=== PATIENT | female | born 1965 | race African-American/Black ===

== ENCOUNTER 2017-07-22 10:27 | Emergency (ER) | payer SELFPAY ==
[~2017-07-22] VITALS: Ht 154.9 cm; Wt 94.8 kg
[~2017-07-22 10:27] MED LIST: AMLODIPINE BESYL5 MG ORAL; AMPICILLIN2 GM PO; BENADRYL25 M2 PO; BENADRYL25 M3 PO; BENADRYL25 MG ORAL; BENADRYL25 MG/10 M GT; BENADRYL50 MG ORAL; BENADRYL50 MG PO; BENAZEPRIL HCL20 MG PO; CEPHALEXIN500 MG ORAL; CLINDAMYCIN HC150 MG ORAL; CLINDAMYCIN HC300 MG ORAL; COLACE250 MG PO; DIFLUCAN100 MG ORAL; DIPHENHYDRAMINE25 M1 ORAL; FUROSEMIDE20 M1 ORAL; FUROSEMIDE40 MG ORAL; HYDROCHLOROTHIA25 MG ORAL; HYDROCHLOROTHIA25 MG PO; IBUPROFEN600 MG ORAL; IBUPROFEN600 MG PO; IBUPROFEN800 M1 PO; IBUPROFEN800 MG ORAL; KENALOG 0.1% CR15 GM APPLIC; MEDROL DOSEPAK4 MG ORAL; METOPROLOL TART25 MG ORAL; NORCO 5-325 TA1 EACH ORAL; NORVASC5 MG ORAL; NYSTATIN1 EAC1 PO; NYSTATIN100000 UN1 ORAL; OMEPRAZOLE40 M1 ORAL; POTASSIUM CHLO10 MEQ PO; PREDNISONE20 MG ORAL; RANITIDINE HCL150 MG ORAL; UNOBMED; VITAMIN D1000 UNI1 ORAL; ZANTAC150 MG ORAL; motrin
[2017-07-22 10:45] VITALS: BP 209/99
[2017-07-22 11:00] VITALS: BP 198/133
[2017-07-22] MEDS ORDERED: Solu-MEDROL 125mg Inj IVP ONE (11:00)
[2017-07-22] MEDS ORDERED: DiphenhydrAMINE 50mg/ml Inj IVP ONE (11:00)
[2017-07-22 11:15] VITALS: BP 198/89
[2017-07-22 11:30] VITALS: BP 179/84
[2017-07-22 11:36] LABS: ANION GAP 9 mmol/L (5-15); BASOPHILS % (AUTO) 0.6 % (0.0-2.0); CALCIUM 8.8 MG/DL (8.5-10.1); CARBON DIOXIDE 28 MMOL/L (21-32); CHLORIDE 107 MMOL/L (98-107); CREATININE 0.9 MG/DL (0.55-1.30); EOSINOPHILS % (AUTO) 5.3 % (0.0-3.0); GLOMERULAR FILTRATION RATE > 60 mL/min (>60); LYMPHOCYTES % (AUTO) 42.7 % (20.0-45.0); MEAN CORPUSCULAR HEMOGLOBIN 28.2 PG (27.0-31.0); MEAN CORPUSCULAR HGB CONC 33.1 G/DL (32.0-36.0); MEAN CORPUSCULAR VOLUME 85 FL (80-99); MEAN PLATELET VOLUME 8.1 FL (6.5-10.1); MONOCYTES % (AUTO) 6.5 % (1.0-10.0); NEUTROPHILS % (AUTO) 44.9 % (45.0-75.0); PLATELET COUNT 237 K/UL (150-450); POTASSIUM 3.4 MMOL/L (3.5-5.1); RED BLOOD COUNT 4.94 M/UL (4.20-5.40); SODIUM 144 MMOL/L (136-145); WHITE BLOOD COUNT 6.7 K/UL (4.8-10.8)
[2017-07-22 11:45] VITALS: BP 187/82
[2017-07-22 11:49] LABS: ALANINE AMINOTRANSFERASE 18 U/L (12-78); ASPARTATE AMINO TRANSFERASE 20 U/L (15-37); CKMB 2.2 NG/ML (0.0-3.6); TOTAL PROTEIN 7.8 G/DL (6.4-8.2)
[2017-07-22] MEDS ORDERED: DIPHENHYDRAMINE25 M1 ORAL (12:30)
[2017-07-22] MEDS ORDERED: HYDROCHLOROTHIA25 MG ORAL (12:30)
[2017-07-22] MEDS ORDERED: PREDNISONE20 MG ORAL (12:30)
[2017-07-22 12:33] VITALS: BP 187/82
[2017-07-22] MEDS ORDERED: IBUPROFEN600 MG ORAL (12:39)
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
--- NOTE | 2017-07-24 14:34 | Diagnostic Imaging Report ---
APPROVED REPORT CPT Code: 59487 Present Symptoms Comments: Left arm pain LEFT UPPER EXTREMITY: Venous imaging reveals patency of the internal jugular, subclavian, axillary and brachial veins. The cephalic and basilic veins are also patent. Doppler indicates normal spontaneous flow within these venous segments.
--- NOTE | 2017-07-25 16:25 | Cardiology Report ---
APPROVED REPORT EKG Measurement Heart [id number] MI [id number] [id number] Normal sinus rhythm Possible Left atrial enlargement Left axis deviation Possible Anterior infarct, age undetermined Abnormal ECG
== END 2017-07-22 12:35 | disposition home or self-care (01) ==
LOC: EMR 10:55
DX: T78.40XA Allergy, unspecified, initial encounter (principal); X58.XXXA Exposure to other specified factors, initial encounter; M79.89 Other specified soft tissue disorders; I10 Essential (primary) hypertension; K21.9 Gastro-esophageal reflux disease without esophagitis; Z88.0 Allergy status to penicillin; Z88.8 Allergy status to other drugs, medicaments and biological substances
CPT/HCPCS: 36415; 80053; 82550; 82553; 84484; 85025; 93005; 93971; 96374; 96375; 99284; J0360; J1200; J2930

== ENCOUNTER 2018-03-05 20:53 | Emergency (ER) | payer SELFPAY ==
[~2018-03-05] VITALS: Ht 154.9 cm; Wt 99.8 kg
[2018-03-05 21:32] VITALS: BP 183/123
--- NOTE | 2018-03-05 21:37 | Emergency Room Report ---
History of Present Illness General Chief Complaint: General Complaint Source: Patient Present Illness HPI This a 52-year-old female with history of high blood pressure. She was supposed be on hydrochlorothiazide but been out for a few months. She took some leftover Lasix a few days ago. She found out it was in September. She's been off of it for couple days. Complaining of some swelling to her hands and legs. Denies any fever chills. Denies any nausea vomiting. No shortness of breath. No hematuria. No chest pain. No other complaint. Allergies: Coded Allergies: KWAKU INHIBITORS (Verified Allergy, Severe, facial swelling, 11/13/12) BENAZEPRIL (Verified Allergy, Severe, Anaphylaxis, 01/10/13) PENICILLINS (Verified Allergy, Unknown, Shortness of Breath, 07/22/17) Uncoded Allergies: BENAZEPRIL (Allergy, Unknown, 03/27/14) Patient History Past Medical History: see triage record, old chart reviewed, HTN Past Surgical History: other Pertinent Family History: none Social History: Denies: smoking Last Menstrual Period: February Now: No Immunizations: other Reviewed Nursing Documentation: PMH: Agreed; PSxH: Agreed Nursing Documentation-PMH Hx Hypertension: Yes Hx Gastrointestinal Problems: Yes - GERD Review of Systems Eye: Denies: eye pain, blurred vision ENT: Denies: ear pain, nose congestion, throat swelling Respiratory: Denies: cough, shortness of breath Cardiovascular: Denies: chest pain, palpitations Gastrointestinal: Denies: abdominal pain, diarrhea, nausea, vomiting Musculoskeletal: Denies: back pain, joint pain Skin: Denies: rash Neurological: Denies: headache, numbness Endocrine: Denies: increased thirst, increased urine Hematologic/Lymphatic: Denies: easy bruising All Other Systems: negative except mentioned in HPI Physical Exam Vital Signs Date Time Temp Pulse Resp B/P (MAP) Pulse Ox O2 Delivery O2 Flow Rate FiO2 03/05/18 21:13 98.4 84 16 199/94 97 Room Air 98.4 vitals with high blood pressure Sp02 EP Interpretation: reviewed, normal General Appearance: well appearing, no apparent distress, alert Head: normocephalic, atraumatic Eyes: bilateral eye PERRL, bilateral eye EOMI ENT: hearing grossly normal, normal pharynx Neck: full range of motion, supple, no meningismus Respiratory: chest non-tender, lungs clear, normal breath sounds Cardiovascular #1: regular rate, rhythm, no murmur Gastrointestinal: normal bowel sounds, non tender, no mass, no organomegaly, no bruit, non-distended Musculoskeletal: back normal, gait/station normal, normal range of motion, swelling - 1+ nonpitting edema Psychiatric: mood/affect normal Skin: warm/dry Medical Decision Making Diagnostic Impression: Primary Impression: Hypertension Qualified Codes: I10 - Essential (primary) hypertension ER Course Patient with hypertension. No evidence of endorgan damage. We'll put her on high blood pressure medication. Lab Results Impression labs unremarkable Last Vital Signs Date Time Temp Pulse Resp B/P (MAP) Pulse Ox O2 Delivery O2 Flow Rate FiO2 03/05/18 21:32 97.8 90 21 183/123 100 Room Air 97.8 Status: improved Disposition: HOME, SELF-CARE Condition: Stable Scripts Hydrochlorothiazide* (HYDROCHLOROTHIAZIDE*) 25 Mg Tablet 25 MG ORAL DAILY, #90 TAB Prov: GLENYS VASQUEZ M.D. 03/05/18 Amlodipine Besylate (Norvasc) 10 Mg Tablet 10 MG ORAL DAILY, #90 TAB Prov: GLENYS VASQUEZ M.D. 03/05/18 Additional Instructions: Take your blood pressure medication. Follow-up with your doctor within a week. Return if worse. GLENYS VASQUEZ M.D. Mar 05, 2018 21:37
[2018-03-05 22:20] LABS: BASOPHILS % (AUTO) 0.8 % (0.0-2.0); EOSINOPHILS % (AUTO) 2.8 % (0.0-3.0); HEMATOCRIT 38.5 % (37.0-47.0); HEMOGLOBIN 13.1 G/DL (12.0-16.0); LYMPHOCYTES % (AUTO) 35.6 % (20.0-45.0); MEAN CORPUSCULAR VOLUME 87 FL (80-99); MONOCYTES % (AUTO) 6.1 % (1.0-10.0); NEUTROPHILS % (AUTO) 54.7 % (45.0-75.0); PLATELET COUNT 242 K/UL (150-450); RED BLOOD COUNT 4.44 M/UL (4.20-5.40); RED CELL DISTRIBUTION WIDTH 13.1 % (11.6-14.8); WHITE BLOOD COUNT 9.6 K/UL (4.8-10.8)
[2018-03-05 22:25] LABS: ANION GAP 8 mmol/L (5-15); BLOOD UREA NITROGEN 13 mg/dL (7-18); CALCIUM 9.2 MG/DL (8.5-10.1); CARBON DIOXIDE 28 MMOL/L (21-32); CHLORIDE 105 MMOL/L (98-107); POTASSIUM 3.6 MMOL/L (3.5-5.1); SODIUM 141 MMOL/L (136-145)
[2018-03-05 22:27] LABS: APPEARANCE,URINE CLEAR; BILIRUBIN, URINE NEGATIVE (NEGATIVE); COLOR,URINE PALE YELLOW; GLUCOSE, URINE (UA) NEGATIVE (NEGATIVE); KETONES,URINE NEGATIVE (NEGATIVE); LEUKOCYTE ESTERASE ,URINE 1+ (NEGATIVE); NITRITE,URINE NEGATIVE (NEGATIVE); PH,URINE 6 (4.5-8.0); PROTEIN,URINE NEGATIVE (NEGATIVE); UROBILINOGEN,URINE 1 MG/DL (0.0-1.0)
[2018-03-05] MEDS ORDERED: DiphenhydrAMINE 50mg/ml Inj IVP ONE (22:45)
[2018-03-05] MEDS ORDERED: HYDROCHLOROTHIA25 MG ORAL (23:02)
[2018-03-05] MEDS ORDERED: NORVASC10 MG ORAL (23:02)
[2018-03-05 23:06] VITALS: BP 196/99
[2018-03-05 23:09] VITALS: BP 196/99
== END 2018-03-05 23:10 | disposition home or self-care (01) ==
LOC: EMR 22:49
DX: I10 Essential (primary) hypertension (principal); K21.9 Gastro-esophageal reflux disease without esophagitis; Z88.8 Allergy status to other drugs, medicaments and biological substances; Z88.0 Allergy status to penicillin
CPT/HCPCS: 36415; 80048; 80307; 81001; 81025; 85025; 99284; J1200; J1940

== ENCOUNTER 2018-05-03 21:41 | Emergency (ER) | payer SELFPAY ==
[~2018-05-03] VITALS: Ht 154.9 cm; Wt 95.3 kg
[~2018-05-03 21:41] MED LIST changes: +NORVASC10 MG ORAL
[2018-05-03 22:10] VITALS: BP 172/81
[2018-05-03] MEDS ORDERED: FUROSEMIDE20 M1 ORAL (22:26)
[2018-05-03] MEDS ORDERED: IBUPROFEN600 MG ORAL (22:26)
[2018-05-03] MEDS ORDERED: POTASSIUM CHLO20 ME1 ORAL (22:26)
--- NOTE | 2018-05-03 22:27 | Emergency Room Report ---
History of Present Illness General Chief Complaint: General Complaint Source: Patient Present Illness HPI Is a 52-year-old female with a history of high blood pressure. She presents with chief complaint of dental pain. She has poor dentition with severe dental decay. She was told that she would be all her teeth removed. Because she has lots of allergy to medicine, she needs referral to see a specialist to make sure she does not allergic to sent medication like Novocain. Her dental pain started today after biting down she felt sharp pain down her right jaw and neck area. She said some swelling but no fever or chills. Pain is 9 out of 10. Better now. Denies any other issues. Her second complaint is she is out of her Lasix and potassium. She has for refill on those. Allergies: Coded Allergies: KWAKU INHIBITORS (Verified Allergy, Severe, facial swelling, 11/13/12) BENAZEPRIL (Verified Allergy, Severe, Anaphylaxis, 01/10/13) PENICILLINS (Verified Allergy, Unknown, Shortness of Breath, 07/22/17) Uncoded Allergies: BENAZEPRIL (Allergy, Unknown, 03/27/14) Patient History Past Medical History: see triage record, old chart reviewed, HTN Past Surgical History: other Pertinent Family History: none Social History: Reports: smoking Now: No Immunizations: other Reviewed Nursing Documentation: PMH: Agreed; PSxH: Agreed Nursing Documentation-PMH Hx Hypertension: Yes Hx Gastrointestinal Problems: Yes - GERD Review of Systems Eye: Denies: eye pain, blurred vision ENT: Denies: ear pain, nose congestion, throat swelling Respiratory: Denies: cough, shortness of breath Cardiovascular: Denies: chest pain, palpitations Gastrointestinal: Denies: abdominal pain, diarrhea, nausea, vomiting Musculoskeletal: Denies: back pain, joint pain Skin: Denies: rash Neurological: Denies: headache, numbness Endocrine: Denies: increased thirst, increased urine Hematologic/Lymphatic: Denies: easy bruising All Other Systems: negative except mentioned in HPI Physical Exam Vital Signs Date Time Temp Pulse Resp B/P (MAP) Pulse Ox O2 Delivery O2 Flow Rate FiO2 05/03/18 21:45 98.1 101 20 172/81 100 Room Air 98.1 vitals normal except for hypertension Sp02 EP Interpretation: reviewed, normal General Appearance: well appearing, no apparent distress, alert Head: normocephalic, atraumatic Eyes: bilateral eye PERRL, bilateral eye EOMI ENT: hearing grossly normal, normal pharynx, other - poor dentitions. No trismus. No abscess Neck: full range of motion, supple, no meningismus Respiratory: chest non-tender, lungs clear, normal breath sounds Cardiovascular #1: regular rate, rhythm, no murmur Gastrointestinal: normal bowel sounds, non tender, no mass, no organomegaly, no bruit, non-distended Musculoskeletal: back normal, gait/station normal, normal range of motion Psychiatric: mood/affect normal Skin: warm/dry Medical Decision Making Diagnostic Impression: Primary Impression: Dental Pain Additional Impression: Hypertension Qualified Codes: I10 - Essential (primary) hypertension ER Course Patient with dental pain. No evidence of any abscess. We'll discharge home. Last Vital Signs Date Time Temp Pulse Resp B/P (MAP) Pulse Ox O2 Delivery O2 Flow Rate FiO2 05/03/18 21:45 98.1 101 20 172/81 100 Room Air 98.1 Status: improved Disposition: HOME, SELF-CARE Condition: Stable Scripts Potassium Chloride* (K-DUR*) 20 Meq Tab.er.prt 20 MEQ ORAL DAILY, #30 TAB 0 Refills Prov: GLENYS VASQUEZ M.D. 05/03/18 Furosemide* (LASIX*) 20 Mg Tablet 20 MG ORAL DAILY, #30 TAB Prov: GLENYS VASQUEZ M.D. 05/03/18 Ibuprofen* (MOTRIN*) 600 Mg Tablet 600 MG ORAL THREE TIMES A DAY, #30 TAB 0 Refills Prov: GLENYS VASQUEZ M.D. 05/03/18 Additional Instructions: Follow-up with your dentist [facility]. Return if worse. GLENYS VASQUEZ M.D. May 03, 2018 22:27
[2018-05-03 22:33] VITALS: BP 172/81
== END 2018-05-03 22:33 | disposition home or self-care (01) ==
LOC: EMR 22:30
DX: K08.89 Other specified disorders of teeth and supporting structures (principal); I10 Essential (primary) hypertension; K21.9 Gastro-esophageal reflux disease without esophagitis; Z88.0 Allergy status to penicillin; Z88.8 Allergy status to other drugs, medicaments and biological substances; F17.200 Nicotine dependence, unspecified, uncomplicated
CPT/HCPCS: 99283

== ENCOUNTER 2018-07-16 22:18 | Emergency (ER) | payer SELFPAY ==
[~2018-07-16] VITALS: Ht 154.9 cm; Wt 104.3 kg
[~2018-07-16 22:18] MED LIST changes: +POTASSIUM CHLO20 ME1 ORAL
[2018-07-16 22:31] VITALS: BP 192/107
[2018-07-16] MEDS ORDERED: POTASSIUM CHLO20 ME1 ORAL (22:42)
[2018-07-16] MEDS ORDERED: NORVASC10 MG ORAL (22:42)
[2018-07-16] MEDS ORDERED: FUROSEMIDE20 M1 ORAL (22:42)
--- NOTE | 2018-07-16 22:43 | Emergency Room Report ---
History of Present Illness General Chief Complaint: Hypertension Source: Patient, Medical Record Present Illness HPI Is a 52-year-old female with a history of hypertension. She is out of her medication for the last month. She checked in because her son was here for different reason. She denies any symptom. No nausea no vomiting. No fever chills. She said that the blood pressure medication that I prescribed work well before. No chest pain. No fever or chills. No urinary complaint. Allergies: Coded Allergies: KWAKU INHIBITORS (Verified Allergy, Severe, facial swelling, 11/13/12) BENAZEPRIL (Verified Allergy, Severe, Anaphylaxis, 01/10/13) PENICILLINS (Verified Allergy, Unknown, Shortness of Breath, 07/22/17) Uncoded Allergies: BENAZEPRIL (Allergy, Unknown, 03/27/14) Patient History Past Medical History: see triage record, old chart reviewed, HTN Past Surgical History: other Pertinent Family History: none Social History: Denies: smoking Last Menstrual Period: last month Now: No Immunizations: other Reviewed Nursing Documentation: PMH: Agreed; PSxH: Agreed Nursing Documentation-PMH Hx Hypertension: Yes Hx Gastrointestinal Problems: Yes - GERD Review of Systems Eye: Denies: eye pain, blurred vision ENT: Denies: ear pain, nose congestion, throat swelling Respiratory: Denies: cough, shortness of breath Cardiovascular: Denies: chest pain, palpitations Gastrointestinal: Denies: abdominal pain, diarrhea, nausea, vomiting Musculoskeletal: Denies: back pain, joint pain Skin: Denies: rash Neurological: Denies: headache, numbness Endocrine: Denies: increased thirst, increased urine Hematologic/Lymphatic: Denies: easy bruising All Other Systems: negative except mentioned in HPI Physical Exam Vital Signs Date Time Temp Pulse Resp B/P (MAP) Pulse Ox O2 Delivery O2 Flow Rate FiO2 07/16/18 22:21 98.1 99 20 230/124 98 Room Air vitals with high blood pressure. Repeat blood pressure 197/104 Sp02 EP Interpretation: reviewed, normal General Appearance: well appearing, no apparent distress, alert Head: normocephalic, atraumatic Eyes: bilateral eye PERRL, bilateral eye EOMI ENT: hearing grossly normal, normal pharynx Neck: full range of motion, supple, no meningismus Respiratory: chest non-tender, lungs clear, normal breath sounds Cardiovascular #1: regular rate, rhythm, no murmur Gastrointestinal: normal bowel sounds, non tender, no mass, no organomegaly, no bruit, non-distended Musculoskeletal: back normal, gait/station normal, normal range of motion Psychiatric: mood/affect normal Skin: warm/dry Medical Decision Making Diagnostic Impression: Primary Impression: Hypertension Qualified Codes: I10 - Essential (primary) hypertension Additional Impression: Prescription refill ER Course Patient presents with hypertension. No evidence of endorgan damage. Right now blood pressure is 153/84. Last Vital Signs Date Time Temp Pulse Resp B/P (MAP) Pulse Ox O2 Delivery O2 Flow Rate FiO2 07/16/18 22:21 98.1 99 20 230/124 98 Room Air Status: improved Disposition: HOME, SELF-CARE Condition: Stable Scripts Potassium Chloride* (K-DUR*) 20 Meq Tab.er.prt 20 MEQ ORAL DAILY, #90 TAB 0 Refills Prov: Shahram Hernandez MD 07/16/18 Furosemide* (LASIX*) 20 Mg Tablet 20 MG ORAL DAILY, #90 TAB Prov: Shahram Hernandez MD 07/16/18 Amlodipine Besylate (Norvasc) 10 Mg Tablet 10 MG ORAL DAILY, #90 TAB Prov: Shahram Hernandez MD 07/16/18 Additional Instructions: Follow-up with your doctor in 7 days for recheck on your blood pressure. Return if worse. Shahram Hernandez MD Jul 16, 2018 22:43
[2018-07-16 22:49] VITALS: BP 153/81
== END 2018-07-16 22:49 | disposition home or self-care (01) ==
LOC: EMR 22:39
DX: I10 Essential (primary) hypertension (principal); Z76.0 Encounter for issue of repeat prescription; K21.9 Gastro-esophageal reflux disease without esophagitis; Z88.0 Allergy status to penicillin; Z88.8 Allergy status to other drugs, medicaments and biological substances
CPT/HCPCS: 99283

== ENCOUNTER 2018-07-21 02:48 | Emergency (ER) | payer SELFPAY ==
[~2018-07-21] VITALS: Ht 154.9 cm; Wt 99.8 kg
[2018-07-21 03:10] VITALS: BP 186/87
[2018-07-21] MEDS ORDERED: Albuterol ud Inhalation HHN ONE (03:15)
--- NOTE | 2018-07-21 03:25 | Emergency Room Report ---
History of Present Illness General Chief Complaint: Edema Source: Patient Present Illness HPI Patient is a 52-year-old female presented after increased bilateral lower extremity swelling. Patient reports having gradual onset of symptoms. She reports having recently been seen in the hospital and given prescription for diuretics the patient reports his had not been effective. Patient reports having had taken her blood pressure medications approximately 9 AM day prior to arrival. Patient reports being a smoker. Allergies: Coded Allergies: KWAKU INHIBITORS (Verified Allergy, Severe, facial swelling, 11/13/12) BENAZEPRIL (Verified Allergy, Severe, Anaphylaxis, 01/10/13) PENICILLINS (Verified Allergy, Unknown, Shortness of Breath, 07/22/17) Uncoded Allergies: BENAZEPRIL (Allergy, Unknown, 03/27/14) Patient History Past Medical History: see triage record Last Menstrual Period: 07/17/2018 Now: No : 5 Para: 6 Reviewed Nursing Documentation: PMH: Agreed; PSxH: Agreed Nursing Documentation-PMH Hx Hypertension: Yes Hx Gastrointestinal Problems: Yes - GERD Review of Systems All Other Systems: negative except mentioned in HPI Physical Exam Vital Signs Date Time Temp Pulse Resp B/P (MAP) Pulse Ox O2 Delivery O2 Flow Rate FiO2 07/21/18 02:53 98.1 96 16 212/109 100 Room Air Sp02 EP Interpretation: reviewed, normal General Appearance: normal inspection, well appearing, no apparent distress, alert, GCS 15 Head: atraumatic Eyes: bilateral eye other - disconjugate gazed ENT: normal ENT inspection, hearing grossly normal, normal voice Neck: normal inspection, full range of motion, supple, no bony tend Respiratory: normal inspection, lungs clear, normal breath sounds, no respiratory distress, no retraction, no wheezing Cardiovascular #1: regular rate, rhythm, no edema Gastrointestinal: normal inspection, normal bowel sounds, non tender, soft, no guarding, no hernia Genitourinary: no CVA tenderness Musculoskeletal: normal inspection, back normal, normal range of motion Neurologic: normal inspection, alert, responsive, speech normal Psychiatric: normal inspection, judgement/insight normal, mood/affect normal Skin: normal inspection, normal color, no rash Medical Decision Making Diagnostic Impression: Primary Impression: Edema Additional Impression: Pneumonia ER Course Patient presented for lower extremity swelling. The differential diagnosis included was not limited to dependent edema, renal insufficiency, medication reaction among others.Because of complexity of patient's case laboratory testing and imaging studies were ordered. The patient was noted to have chest x-ray one view interpreted by me with right lower lobe infiltrate. The patient was given prescription for oral antibiotics. The patient was advised follow-up with primary care physician for reexamination. Patient was given Lasix with improvement in her swelling. Labs Test 07/21/18 03:20 07/21/18 03:32 Urine Color Pale yellow Urine Appearance Clear Urine pH 7 (4.5-8.0) Urine Specific [place] 1.005 (1.005-1.035) Urine Protein Negative (NEGATIVE) Urine Glucose (UA) Negative (NEGATIVE) Urine Ketones Negative (NEGATIVE) Urine Blood Negative (NEGATIVE) Urine Nitrite Negative (NEGATIVE) Urine Bilirubin Negative (NEGATIVE) Urine Urobilinogen Normal MG/DL (0.0-1.0) Urine Leukocyte Esterase Negative (NEGATIVE) Urine Opiates Screen Negative (NEGATIVE) Urine Barbiturates Screen Negative (NEGATIVE) Phencyclidine (PCP) Screen Negative (NEGATIVE) Urine Amphetamines Screen Negative (NEGATIVE) Urine Benzodiazepines Screen Negative (NEGATIVE) Urine Cocaine Screen Negative (NEGATIVE) Urine Marijuana (THC) Screen Negative (NEGATIVE) White Blood Count 6.8 K/UL (4.8-10.8) Red Blood Count 5.02 M/UL (4.20-5.40) Hemoglobin 14.1 G/DL (12.0-16.0) Hematocrit 42.6 % (37.0-47.0) Mean Corpuscular Volume 85 FL (80-99) Mean Corpuscular Hemoglobin 28.1 PG (27.0-31.0) Mean Corpuscular Hemoglobin Concent 33.1 G/DL (32.0-36.0) Red Cell Distribution Width 12.9 % (11.6-14.8) Platelet Count 267 K/UL (150-450) Mean Platelet Volume 6.1 FL (6.5-10.1) Neutrophils (%) (Auto) 43.0 % (45.0-75.0) Lymphocytes (%) (Auto) 46.1 % (20.0-45.0) Monocytes (%) (Auto) 6.8 % (1.0-10.0) Eosinophils (%) (Auto) 3.5 % (0.0-3.0) Basophils (%) (Auto) 0.7 % (0.0-2.0) Sodium Level 143 MMOL/L (136-145) Potassium Level 3.2 MMOL/L (3.5-5.1) Chloride Level 104 MMOL/L (98-107) Carbon Dioxide Level 30 MMOL/L (21-32) Anion Gap 9 mmol/L (5-15) Blood Urea Nitrogen 11 mg/dL (7-18) Creatinine 0.8 MG/DL (0.55-1.30) Estimat Glomerular Filtration Rate > 60 mL/min (>60) Glucose Level 102 MG/DL (74-106) Calcium Level 9.2 MG/DL (8.5-10.1) Total Bilirubin 0.3 MG/DL (0.2-1.0) Aspartate Amino Transf (AST/SGOT) 19 U/L (15-37) Alanine Aminotransferase (ALT/SGPT) 22 U/L (12-78) Alkaline Phosphatase 97 U/L (46-116) Total Creatine Kinase 267 U/L (26-308) Creatine Kinase MB 2.0 NG/ML (0.0-3.6) Creatine Kinase MB Relative Index 0.7 Troponin I 0.000 ng/mL (0.000-0.056) Pro-B-Type Natriuretic Peptide 21 pg/mL (0-125) Total Protein 8.6 G/DL (6.4-8.2) Albumin 3.8 G/DL (3.4-5.0) Globulin 4.8 g/dL Albumin/Globulin Ratio 0.8 (1.0-2.7) EKG Diagnostic Results Rate: normal - 89 Rhythm: NSR ST Segments: no acute changes Rhythm Strip Diag. Results EP Interpretation: yes Rhythm: NSR, no PVC's Last Vital Signs Date Time Temp Pulse Resp B/P (MAP) Pulse Ox O2 Delivery O2 Flow Rate FiO2 07/21/18 02:53 98.1 96 16 212/109 100 Room Air Status: improved Disposition: HOME, SELF-CARE Condition: Stable Scripts Albuterol Sulfate* (ALBUTEROL SULFATE MDI*) 8.5 Gm Hfa.aer.ad 2 PUFF INH Q4H PRN for cough/wheezing, #1 EA 0 Refills Prov: Sunil Frazier MD 07/21/18 Azithromycin* (ZITHROMAX*) 250 Mg Tablet 250 MG ORAL DAILY, #6 TAB 0 Refills Take two tables once daily for 1 day, then one tablet once daily for 4 days. Prov: Sunil Frazier MD 07/21/18 Referrals: NON PHYSICIAN (PCP) Sunil Frazier MD Jul 21, 2018 03:25
[2018-07-21 03:35] LABS: APPEARANCE,URINE CLEAR; BILIRUBIN, URINE NEGATIVE (NEGATIVE); COLOR,URINE PALE YELLOW; GLUCOSE, URINE (UA) NEGATIVE (NEGATIVE); KETONES,URINE NEGATIVE (NEGATIVE); LEUKOCYTE ESTERASE ,URINE NEGATIVE (NEGATIVE); NITRITE,URINE NEGATIVE (NEGATIVE); PH,URINE 7 (4.5-8.0); PROTEIN,URINE NEGATIVE (NEGATIVE); UROBILINOGEN,URINE NORMAL MG/DL (0.0-1.0)
[2018-07-21 03:49] LABS: BASOPHILS % (AUTO) 0.7 % (0.0-2.0); EOSINOPHILS % (AUTO) 3.5 % (0.0-3.0); HEMATOCRIT 42.6 % (37.0-47.0); HEMOGLOBIN 14.1 G/DL (12.0-16.0); LYMPHOCYTES % (AUTO) 46.1 % (20.0-45.0); MEAN CORPUSCULAR VOLUME 85 FL (80-99); MONOCYTES % (AUTO) 6.8 % (1.0-10.0); PLATELET COUNT 267 K/UL (150-450); RED BLOOD COUNT 5.02 M/UL (4.20-5.40); RED CELL DISTRIBUTION WIDTH 12.9 % (11.6-14.8); WHITE BLOOD COUNT 6.8 K/UL (4.8-10.8)
[2018-07-21 03:52] LABS: ANION GAP 9 mmol/L (5-15); BLOOD UREA NITROGEN 11 mg/dL (7-18); CALCIUM 9.2 MG/DL (8.5-10.1); CARBON DIOXIDE 30 MMOL/L (21-32); CHLORIDE 104 MMOL/L (98-107); CREATININE 0.8 MG/DL (0.55-1.30); POTASSIUM 3.2 MMOL/L (3.5-5.1); SODIUM 143 MMOL/L (136-145)
[2018-07-21 04:07] LABS: ALANINE AMINOTRANSFERASE 22 U/L (12-78); ALBUMIN 3.8 G/DL (3.4-5.0); ALBUMIN/GLOBULIN RATIO 0.8 (1.0-2.7); ALKALINE PHOSPHATASE 97 U/L (46-116); ASPARTATE AMINO TRANSFERASE 19 U/L (15-37); BILIRUBIN,TOTAL 0.3 MG/DL (0.2-1.0); CREATINE KINASE 267 U/L (26-308)
[2018-07-21] MEDS ORDERED: ALBUTEROL SULF8.5 GM INH (04:51)
[2018-07-21] MEDS ORDERED: ZITHROMAX250 MG ORAL (04:51)
[2018-07-21 05:10] VITALS: BP 180/86
[2018-07-21 05:40] VITALS: BP 170/83
[2018-07-21] MEDS ORDERED: Acetaminophen 500mg (ES) tab ORAL ONE (05:45)
[2018-07-21 05:51] VITALS: BP 171/85
--- NOTE | 2018-07-21 11:45 | Diagnostic Imaging Report ---
Indication: Dyspnea Comparison: None A single view chest radiograph was obtained. Findings: Cardiomediastinal appearance is within normal limits for age. The lungs are clear. Pulmonary vascularity is appropriate. The diaphragmatic contour is smooth and costophrenic angles are sharp. No pleural effusions are identified. The bones are unremarkable. Impression: No acute findings
--- NOTE | 2018-07-21 17:35 | Cardiology Report ---
APPROVED REPORT EKG Measurement Heart [id number] Normal sinus rhythm Left axis deviation Prolonged QT Abnormal ECG
== END 2018-07-21 05:40 | disposition home or self-care (01) ==
LOC: EMR 03:09
DX: R60.0 Localized edema (principal); J18.9 Pneumonia, unspecified organism; K21.9 Gastro-esophageal reflux disease without esophagitis; I10 Essential (primary) hypertension; R51 Headache; F17.200 Nicotine dependence, unspecified, uncomplicated; Z88.0 Allergy status to penicillin; Z88.6 Allergy status to analgesic agent; Z88.8 Allergy status to other drugs, medicaments and biological substances
CPT/HCPCS: 36415; 71045; 80053; 80307; 81003; 82550; 82553; 83880; 84484; 85025; 93005; 94640; 94664; 99284; J8499

== ENCOUNTER 2018-07-26 22:34 | Emergency (ER) | payer SELFPAY ==
[~2018-07-26] VITALS: Ht 154.9 cm; Wt 99.8 kg
[~2018-07-26 22:34] MED LIST changes: +ALBUTEROL SULF8.5 GM INH; +ZITHROMAX250 MG ORAL
--- NOTE | 2018-07-26 22:49 | Emergency Room Report ---
History of Present Illness General Chief Complaint: General Complaint Source: Patient, Medical Record Present Illness HPI Is a 52-year-old female with history of high blood pressure. She presents with chief complaint of cough and pneumonia. She was here about a week ago for the same thing. Was diagnosed with possible pneumonia and given albuterol and azithromycin. She said she's not better. [place] the same. No fever chills but no nausea no vomiting. Cough is nonproductive in nature. Does have congestion. Allergies: Coded Allergies: KWAKU INHIBITORS (Verified Allergy, Severe, facial swelling, 11/13/12) BENAZEPRIL (Verified Allergy, Severe, Anaphylaxis, 01/10/13) PENICILLINS (Verified Allergy, Unknown, Shortness of Breath, 07/22/17) Uncoded Allergies: BENAZEPRIL (Allergy, Unknown, 03/27/14) Patient History Past Medical History: see triage record, old chart reviewed, HTN Past Surgical History: other Pertinent Family History: none Social History: Denies: smoking Last Menstrual Period: jul 24, 2018 Now: No Immunizations: other Reviewed Nursing Documentation: PMH: Agreed; PSxH: Agreed Nursing Documentation-PMH Hx Hypertension: Yes Hx Gastrointestinal Problems: Yes - GERD Review of Systems Eye: Denies: eye pain, blurred vision ENT: Denies: ear pain, nose congestion, throat swelling Respiratory: Reports: cough, shortness of breath Cardiovascular: Denies: chest pain, palpitations Gastrointestinal: Denies: abdominal pain, diarrhea, nausea, vomiting Musculoskeletal: Denies: back pain, joint pain Skin: Denies: rash Neurological: Denies: headache, numbness Endocrine: Denies: increased thirst, increased urine Hematologic/Lymphatic: Denies: easy bruising All Other Systems: negative except mentioned in HPI Physical Exam Vital Signs Date Time Temp Pulse Resp B/P (MAP) Pulse Ox O2 Delivery O2 Flow Rate FiO2 07/26/18 22:38 98.2 87 16 200/87 96 Room Air vitals with htn Sp02 EP Interpretation: reviewed, normal General Appearance: well appearing, no apparent distress, alert Head: normocephalic, atraumatic Eyes: bilateral eye PERRL, bilateral eye EOMI ENT: hearing grossly normal, normal pharynx Neck: full range of motion, supple, no meningismus Respiratory: chest non-tender, lungs clear, normal breath sounds Cardiovascular #1: regular rate, rhythm, no murmur Gastrointestinal: normal bowel sounds, non tender, no mass, no organomegaly, no bruit, non-distended Musculoskeletal: back normal, gait/station normal, normal range of motion Psychiatric: mood/affect normal Skin: warm/dry Medical Decision Making Diagnostic Impression: Primary Impression: Hypertension Qualified Codes: I10 - Essential (primary) hypertension Additional Impression: Upper respiratory infection, viral ER Course Patient with upper respiratory infection with bronchospasm. No evidence of pneumonia, PE, dissection to name a few. Chest x-ray from before was clear. Labs unremarkable from last week. No evidence of endorgan damage. We'll discharge home. Last Vital Signs Date Time Temp Pulse Resp B/P (MAP) Pulse Ox O2 Delivery O2 Flow Rate FiO2 07/26/18 22:38 98.2 87 16 200/87 96 Room Air Status: improved Disposition: HOME, SELF-CARE Condition: Stable Scripts Promethazine HCl/Codeine (Prometh-Codein 6.25-10 mg/5 ml) 5 Ml Syrup 5 ML PO Q6HR, #118 ML Prov: Shahram Hernandez MD 07/26/18 Additional Instructions: Take your blood pressure medication. Follow-up with your doctor in 7 days. Continue with your inhaler. Return if worse. Shahram Hernandez MD Jul 26, 2018 22:49
[2018-07-26] MEDS ORDERED: Albuterol ud Inhalation HHN ONE (23:00)
[2018-07-26 23:04] VITALS: BP 166/83
[2018-07-26] MEDS ORDERED: PROMETH-CODEIN 65 ML PO (23:13)
[2018-07-26 23:34] VITALS: BP 154/71
[2018-07-26 23:35] VITALS: BP 154/71
== END 2018-07-26 23:45 | disposition home or self-care (01) ==
LOC: EMR 23:00
DX: J06.9 Acute upper respiratory infection, unspecified (principal); I10 Essential (primary) hypertension; B34.9 Viral infection, unspecified; Z88.0 Allergy status to penicillin; Z88.8 Allergy status to other drugs, medicaments and biological substances
CPT/HCPCS: 94640; 94664; 99284

== ENCOUNTER 2018-08-23 21:40 | Emergency (ER) | payer SELFPAY ==
[~2018-08-23] VITALS: Ht 154.9 cm; Wt 99.8 kg
[~2018-08-23 21:40] MED LIST changes: +PROMETH-CODEIN 65 ML PO
[2018-08-23 22:00] VITALS: BP 174/87
--- NOTE | 2018-08-23 22:00 | NUR ---
ER Nurse Note: Pt came from home c/o left arm pain 8/10 and swelling of the arm and fingers. Pt stated the arm has a pulling sensation and feels heavy. Cap refill less than 3 seconds, full range of motion on all extremities, radial pulses +2 strength. Pt has a hx of HTN with 173/87 at bedside; aware. Pt a&ox4, VSS otherwise. ERMD at bedside; will continue to monitor.
[2018-08-23] MEDS ORDERED: FUROSEMIDE20 M1 ORAL (22:21)
--- NOTE | 2018-08-23 22:23 | Emergency Room Report ---
History of Present Illness General Chief Complaint: General Complaint Source: Patient Present Illness HPI Is a 52-year-old female with history of high blood pressure. She presents with chief complaint of arm pain and swelling. Onset yesterday. Initially her right forearm felt heavy and tender. Now her left arm. Also with swelling to her fingers. She been out of her Lasix for last few days. No fever chills but no nausea no vomiting. Worse with certain movement. Has a pulling sensation. Allergies: Coded Allergies: KWAKU INHIBITORS (Verified Allergy, Severe, facial swelling, 11/13/12) BENAZEPRIL (Verified Allergy, Severe, Anaphylaxis, 01/10/13) PENICILLINS (Verified Allergy, Unknown, Shortness of Breath, 07/22/17) Uncoded Allergies: BENAZEPRIL (Allergy, Unknown, 03/27/14) Patient History Past Medical History: see triage record, old chart reviewed, HTN Past Surgical History: none Pertinent Family History: none Social History: Denies: smoking Last Menstrual Period: Two weeks ago Now: No Immunizations: other Reviewed Nursing Documentation: PMH: Agreed; PSxH: Agreed Nursing Documentation-PMH Hx Hypertension: Yes Hx Gastrointestinal Problems: Yes - GERD Review of Systems Eye: Denies: eye pain, blurred vision ENT: Denies: ear pain, nose congestion, throat swelling Respiratory: Denies: cough, shortness of breath Cardiovascular: Denies: chest pain, palpitations Gastrointestinal: Denies: abdominal pain, diarrhea, nausea, vomiting Musculoskeletal: Reports: muscle pain; Denies: back pain, joint pain Skin: Denies: rash Neurological: Denies: headache, numbness Endocrine: Denies: increased thirst, increased urine Hematologic/Lymphatic: Denies: easy bruising All Other Systems: negative except mentioned in HPI Physical Exam Vital Signs Date Time Temp Pulse Resp B/P (MAP) Pulse Ox O2 Delivery O2 Flow Rate FiO2 08/23/18 21:47 98.2 99 18 174/87 98 Room Air vitals with high blood pressure Sp02 EP Interpretation: reviewed, normal General Appearance: well appearing, no apparent distress, alert Head: normocephalic, atraumatic Eyes: bilateral eye PERRL, bilateral eye EOMI ENT: hearing grossly normal, normal pharynx Neck: full range of motion, supple, no meningismus Respiratory: chest non-tender, lungs clear, normal breath sounds Cardiovascular #1: regular rate, rhythm, no murmur Gastrointestinal: normal bowel sounds, non tender, no mass, no organomegaly, no bruit, non-distended Musculoskeletal: back normal, gait/station normal, normal range of motion, other - Left arm: She has mild tenderness over the the left brachial radialis muscle. I do not appreciate any edema compared to the right. Pulses are normal. Trace pitting edema to lower extremity. Neurologic: alert, oriented x3 Psychiatric: mood/affect normal Skin: warm/dry Medical Decision Making Diagnostic Impression: Primary Impression: Hypertension Qualified Codes: I10 - Essential (primary) hypertension Additional Impression: Myalgia ER Course Patient with myalgia. This may be secondary to edema from lack of Lasix for a few day. I do not appreciate any and organ damage. No evidence of any CHF. Symptom is reproducible and bilaterally. I see no evidence of ACS, PE, dissection to name a few. We'll discharge home. No evidence of any allergies. Last Vital Signs Date Time Temp Pulse Resp B/P (MAP) Pulse Ox O2 Delivery O2 Flow Rate FiO2 08/23/18 21:47 98.2 99 18 174/87 98 Room Air Status: improved Disposition: HOME, SELF-CARE Condition: Stable Scripts Furosemide* (LASIX*) 20 Mg Tablet 20 MG ORAL DAILY, #30 TAB Prov: Shahram Hernandez MD 08/23/18 Additional Instructions: Take your blood pressure medication. Follow-up with your DrMakenzie within a week for recheck. Return if symptom worsen. Shahrma Hernandez MD Aug 23, 2018 22:23
[2018-08-23] MEDS ORDERED: Furosemide 40mg tab ORAL ONE (22:30)
[2018-08-23 22:50] VITALS: BP 174/87
--- NOTE | 2018-08-23 22:50 | NUR ---
ER Nurse Note: Pt seen, treated, medially cleared by ERMD. Discharge instructions and prescriptions given with repeat verbalization by pt. Instructed pt to follow up with primary care physican within one week for futher treatment. Pt a&ox4, VSS, ID band removed. Pt left on stable gait with all belongings.
== END 2018-08-23 22:50 | disposition home or self-care (01) ==
LOC: EMR 22:10
DX: M79.10 Myalgia, unspecified site (principal); I10 Essential (primary) hypertension; Z88.0 Allergy status to penicillin; Z88.8 Allergy status to other drugs, medicaments and biological substances; K21.9 Gastro-esophageal reflux disease without esophagitis
CPT/HCPCS: 99282

== ENCOUNTER 2018-10-30 22:29 | Emergency (ER) | payer SELFPAY ==
[~2018-10-30] VITALS: Ht 154.9 cm; Wt 99.8 kg
--- NOTE | 2018-10-30 22:56 | Emergency Room Report ---
History of Present Illness General Chief Complaint: Neck Pain Source: Patient Present Illness HPI This is a 53-year-old female well-known to me. She presents with chief complaint of high blood pressure. She been out of her medications for 3 days now. She has an appointment with her primary care doctor but it won't be until January. She said her insurance try to change it so she can be seen sooner. Patient complaining of high blood pressure. No nausea no vomiting. Initially said neck pain but less chronic in nature for her. No chest pain. Denies any other complaint. Allergies: Coded Allergies: KWAKU INHIBITORS (Verified Allergy, Severe, facial swelling, 10/30/18) BENAZEPRIL (Verified Allergy, Severe, Anaphylaxis, 01/10/13) PENICILLINS (Verified Allergy, Unknown, Shortness of Breath, 07/22/17) Uncoded Allergies: BENAZEPRIL (Allergy, Unknown, 03/27/14) Patient History Past Medical History: see triage record, old chart reviewed, HTN Past Surgical History: none Pertinent Family History: none Social History: Denies: smoking Now: No Immunizations: other Reviewed Nursing Documentation: PMH: Agreed; PSxH: Agreed Nursing Documentation-PMH Hx Hypertension: Yes Hx Gastrointestinal Problems: Yes - GERD Review of Systems Eye: Denies: eye pain, blurred vision ENT: Denies: ear pain, nose congestion, throat swelling Respiratory: Denies: cough, shortness of breath Cardiovascular: Denies: chest pain, palpitations Gastrointestinal: Denies: abdominal pain, diarrhea, nausea, vomiting Musculoskeletal: Denies: back pain, joint pain Skin: Denies: rash Neurological: Denies: headache, numbness Endocrine: Denies: increased thirst, increased urine Hematologic/Lymphatic: Denies: easy bruising All Other Systems: negative except mentioned in HPI Physical Exam Vital Signs Date Time Temp Pulse Resp B/P (MAP) Pulse Ox O2 Delivery O2 Flow Rate FiO2 10/30/18 22:47 97.5 88 16 160/94 98 Room Air vitals with high blood pressure Sp02 EP Interpretation: reviewed, normal General Appearance: well appearing, no apparent distress, alert Head: normocephalic, atraumatic Eyes: bilateral eye PERRL, bilateral eye EOMI ENT: hearing grossly normal, normal pharynx Neck: full range of motion, supple, no meningismus Respiratory: chest non-tender, lungs clear, normal breath sounds Cardiovascular #1: regular rate, rhythm, no murmur Gastrointestinal: normal bowel sounds, non tender, no mass, no organomegaly, no bruit, non-distended Musculoskeletal: back normal, gait/station normal, normal range of motion Psychiatric: mood/affect normal Skin: warm/dry Medical Decision Making Diagnostic Impression: Primary Impression: Hypertension Qualified Codes: I10 - Essential (primary) hypertension Additional Impression: Prescription refill ER Course Patient here for refills on her blood pressure medication. She looks well. No evidence of end organ damage. We'll discharge home. Last Vital Signs Date Time Temp Pulse Resp B/P (MAP) Pulse Ox O2 Delivery O2 Flow Rate FiO2 10/30/18 22:47 97.5 88 16 160/94 98 Room Air Status: improved Disposition: HOME, SELF-CARE Condition: Stable Additional Instructions: Follow-up with your Dr. in one to 2 weeks. Return if symptom worsen. Shahram Hernandez MD Oct 30, 2018 22:56
[2018-10-30] MEDS ORDERED: NORVASC10 MG ORAL (23:04)
[2018-10-30] MEDS ORDERED: POTASSIUM CHLO20 ME1 ORAL (23:04)
[2018-10-30] MEDS ORDERED: FUROSEMIDE20 M1 ORAL (23:04)
[2018-10-30 23:08] VITALS: BP 157/61
--- NOTE | 2018-10-30 23:08 | NUR ---
ER Nurse Note: Pt came fromhome c/o headache. Pt stated she did not take her BP meds for three days because she ran out. Pt BP elevated at triage. Pt a&ox4, VSS, no signs of dsitress. No n/v, dizziness. ERMD at pt side; will continue to montior.
[2018-10-30 23:15] VITALS: BP 157/61
--- NOTE | 2018-10-30 23:15 | NUR ---
ER Nurse Note: Pt seen, treated, medically cleared by ERMD by pt for discharge. Discharge instructions and prescriptions given with repeat verbalization by pt. Instructed pt to follow up with primary care physican within one week. Pt a&ox4, VSS, no signs of distress. ID band removed. Left via own transportation with steady gait.
== END 2018-10-30 23:15 | disposition home or self-care (01) ==
LOC: EMR 23:10
DX: I10 Essential (primary) hypertension (principal); M54.2 Cervicalgia; Z76.0 Encounter for issue of repeat prescription
CPT/HCPCS: 99282

== ENCOUNTER 2019-03-01 18:41 | Emergency (ER) | payer MEDICAID ==
[~2019-03-01] VITALS: Ht 154.9 cm; Wt 102.1 kg
[2019-03-01 18:45] VITALS: BP 171/88
--- NOTE | 2019-03-01 18:45 | NUR ---
ED Nurse Note: pt walked in c/o hypertension, denies sob, denies dizziness, pt stated she run out of her htn meds. seen by [facility]ving.awaiting for order. will continue to monitor
[2019-03-01] MEDS ORDERED: POTASSIUM CHLO10 MEQ ORAL (19:11)
[2019-03-01] MEDS ORDERED: FUROSEMIDE40 MG ORAL (19:11)
[2019-03-01] MEDS ORDERED: ZYRTEC10 MG ORAL (19:11)
[2019-03-01] MEDS ORDERED: AMLODIPINE BESY10 MG ORAL (19:11)
[2019-03-01 19:20] VITALS: BP 162/90
--- NOTE | 2019-03-01 19:20 | NUR ---
ER DISCHARGE NOTE: Patient is cleared to be discharged per ERMD, pt is aox4, on room air, with stable vital signs. pt was given dc and prescription instructions, pt was able to verbalize understanding, pt id band removed without complications. pt is able to ambulate with steady gait. pt took all belongings.
--- NOTE | 2019-03-01 19:39 | Emergency Room Report ---
History of Present Illness General Chief Complaint: Hypertension Source: Patient Present Illness HPI Patient initially presents with complaints of high blood pressure and being off her medications for the past 7 to 10 days she also does report postnasal drip and sensation of nasal drainage Denies any chest pain or shortness of breath denies any vomiting denies any back or flank pain patient reports that at times she feels a wheezing sensation as well patient is currently a Daily smoker Denies any vomiting or diarrhea denies any fevers or chills Denies any headache denies any chest pain Allergies: Coded Allergies: KWAKU INHIBITORS (Verified Allergy, Severe, facial swelling, 10/30/18) BENAZEPRIL (Verified Allergy, Severe, Anaphylaxis, 01/10/13) PENICILLINS (Verified Allergy, Unknown, Shortness of Breath, 07/22/17) Uncoded Allergies: BENAZEPRIL (Allergy, Unknown, 03/27/14) Patient History Past Medical History: see triage record Pertinent Family History: none Last Menstrual Period: 02/01/2019 Now: No Reviewed Nursing Documentation: PMH: Agreed; PSxH: Agreed Nursing Documentation-PMH Past Medical History: No History, Except For Hx Hypertension: Yes Hx Gastrointestinal Problems: Yes - GERD Review of Systems All Other Systems: negative except mentioned in HPI Physical Exam Vital Signs Date Time Temp Pulse Resp B/P (MAP) Pulse Ox O2 Delivery O2 Flow Rate FiO2 03/01/19 18:45 98.1 84 20 187/95 (125) 97 Room Air Sp02 EP Interpretation: reviewed, normal General Appearance: well appearing, no apparent distress Head: normocephalic, atraumatic Eyes: bilateral eye PERRL ENT: hearing grossly normal, normal pharynx, TMs + canals normal, uvula midline Neck: full range of motion, supple, no meningismus, no bony tend Respiratory: lungs clear, normal breath sounds, no rhonchi, no respiratory distress, no retraction, no accessory muscle use Cardiovascular #1: normal peripheral pulses, regular rate, rhythm, no edema, no gallop, no JVD, no murmur Gastrointestinal: normal bowel sounds, non tender, soft, no mass, no organomegaly, non-distended, no guarding, no hernia, no pulsatile mass, no rebound Genitourinary: no CVA tenderness Musculoskeletal: normal inspection Neurologic: oriented x3, responsive, 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 III-XII nml as tested, motor strength/ tone normal, sensory intact Psychiatric: mood/affect normal Lymphatic: normal inspection, no adenopathy Medical Decision Making Diagnostic Impression: Primary Impression: Hypertension ER Course Patient is a fairly complex patient with multiple differential to consideration including but not limited to cardiac cardiopulmonary and vascular emergencies Patient has been off her medications for several days the pressure at this time is 177 systolic patient is asymptomatic she is written a prescription for refill at home given the lack of any Acute cardiac symptoms patient is stable for continued close outpatient follow- up she did also request medication for her nasal congestion Last Vital Signs Date Time Temp Pulse Resp B/P (MAP) Pulse Ox O2 Delivery O2 Flow Rate FiO2 03/01/19 19:20 98.0 74 18 162/90 99 Room Air Status: unchanged Disposition: HOME, SELF-CARE Condition: Stable Scripts Cetirizine Hcl* (ZYRTEC*) 10 Mg Tablet 10 MG ORAL DAILY, #12 TAB 0 Refills Prov: Manjit Ricketts DO 03/01/19 Potassium Chloride* (K-DUR*) 10 Meq Capsule.er 10 MEQ ORAL EVERY OTHER DAY, #14 TAB 0 Refills Prov: Manjit Ricketts DO 03/01/19 Furosemide* (LASIX*) 40 Mg Tablet 40 MG ORAL DAILY, #20 TAB Prov: Manjit Ricketts DO 03/01/19 Amlodipine Besylate* (AMLODIPINE BESYLATE*) 10 Mg Tablet 10 MG ORAL DAILY, #20 TAB Prov: Manjit Ricketts DO 03/01/19 Referrals: [facility] Patient Instructions: Hypertension, [id number] Additional Instructions: Patient is provided with the discharge instructions notified to follow up with primary doctor in the next 2-3 days otherwise return to the er with any worsening symptoms. Please note that this report is being documented using [employer] technology. This can lead to erroneous entry secondary to incorrect interpretation by the dictating instrument. Manjit Ricketts DO Mar 01, 2019 19:39
== END 2019-03-01 19:40 | disposition home or self-care (01) ==
LOC: EMR 19:32
DX: I10 Essential (primary) hypertension (principal); K21.9 Gastro-esophageal reflux disease without esophagitis; Z88.0 Allergy status to penicillin; Z88.8 Allergy status to other drugs, medicaments and biological substances
CPT/HCPCS: 99282

== ENCOUNTER 2019-06-11 16:25 | Emergency (ER) | payer MEDICAID ==
[~2019-06-11] VITALS: Ht 154.9 cm; Wt 99.8 kg
[~2019-06-11 16:25] MED LIST changes: +AMLODIPINE BESY10 MG ORAL; +POTASSIUM CHLO10 MEQ ORAL; +ZYRTEC10 MG ORAL
[2019-06-11 16:56] VITALS: BP 199/101
[2019-06-11 16:58] VITALS: BP 145/102
[2019-06-11] MEDS ORDERED: Furosemide 40mg tab ORAL ONE (17:00)
--- NOTE | 2019-06-11 17:02 | NUR ---
ED Nurse Note: pt presents to ED with HTN for 2 weeks. pt states that due to changes in insurance, she has not been able to fill her prescriptions. pt also reports a PATTEN that starts in the back of her head and goes to the front as well as some blurred vision. pt states that she often feels this way when her BP becomes too elevated. her BP during triage was 199/101. it is currently 180/56, HR: 76, SpO2: 100%. pt has no other complaints at this time. she is in stable condition with daughter at bedside who is being evaluated for a sore throat
[2019-06-11 17:30] VITALS: BP 164/99
--- NOTE | 2019-06-11 17:36 | Emergency Room Report ---
History of Present Illness General Chief Complaint: Hypertension Source: Patient Present Illness HPI 53-year-old female with history of hypertension here complaining of elevated blood pressure x2 weeks as she ran out of her medication due to insurance change. Patient complains of headache however denies blurred vision, dizziness , chest pain, shortness of breath, palpitation. After giving the usual medication that she takes for blood pressure emergency room she reported that her headache subsided. Also complains of worsening tooth abscess that she previously take antibiotics but has an upcoming appointment with a dentist next week. Patient is rating her tooth pain 5 out of 10 without radiation, denies tingling numbness. Has not taken any medication for symptom relief. Patient is taking Norvasc 10 mg, Lasix 40, and potassium 20 mg daily. Patient stable with stable vital signs other than elevated blood pressure which is secondary to not taking her blood pressure medication for over 2 weeks. Patient reports that she has been having this headache for the past week. Patient has been seen at [facility] previously for similar symptoms and noncompliance with blood pressure medication. Allergies: Coded Allergies: KWAKU INHIBITORS (Verified Allergy, Severe, facial swelling, 10/30/18) BENAZEPRIL (Verified Allergy, Severe, Anaphylaxis, 01/10/13) PENICILLINS (Verified Allergy, Unknown, Shortness of Breath, 07/22/17) Uncoded Allergies: BENAZEPRIL (Allergy, Unknown, 03/27/14) Patient History Past Medical History: see triage record Past Surgical History: unable to obtain Pertinent Family History: none Now: No Immunizations: UTD Reviewed Nursing Documentation: PMH: Agreed; PSxH: Agreed Nursing Documentation-PMH Past Medical History: No History, Except For Hx Hypertension: Yes Hx Gastrointestinal Problems: Yes - GERD Review of Systems All Other Systems: negative except mentioned in HPI Physical Exam Vital Signs Date Time Temp Pulse Resp B/P (MAP) Pulse Ox O2 Delivery O2 Flow Rate FiO2 06/11/19 16:44 98.2 84 18 199/101 (133) 98 Room Air Sp02 EP Interpretation: reviewed, abnormal - elevated BP General Appearance: no apparent distress, alert, GCS 15, non-toxic Head: normocephalic, atraumatic Eyes: bilateral eye normal inspection, bilateral eye PERRL ENT: hearing grossly normal, normal pharynx, no angioedema, normal voice, other - Right upper posterior molar infection Neck: full range of motion, supple/symm/no masses Respiratory: chest non-tender, lungs clear, normal breath sounds, no rhonchi, no wheezing, speaking full sentences Cardiovascular #1: regular rate, rhythm, no edema, no murmur Gastrointestinal: normal bowel sounds, non tender, soft, non-distended, no guarding, no rebound Genitourinary: normal inspection, no CVA tenderness Musculoskeletal: back normal, gait/station normal, normal range of motion, non- tender Neurologic: alert, oriented x3, responsive, motor strength/tone normal, sensory intact, speech normal Psychiatric: judgement/insight normal, memory normal, mood/affect normal, no suicidal/homicidal ideation Skin: no rash Lymphatic: no adenopathy Medical Decision Making PA Attestation All my diagnosis and treatment plans were reviewed ad discussed with my supervising physician Dr. Kumar Diagnostic Impression: Primary Impression: Hypertension Additional Impression: Tooth infection ER Course 53-year-old female with history of hypertension here complaining of elevated blood pressure x2 weeks as she ran out of her medication due to insurance change. Patient complains of headache however denies blurred vision, dizziness , chest pain, shortness of breath, palpitation. After giving the usual medication that she takes for blood pressure emergency room she reported that her headache subsided. Also complains of worsening tooth abscess that she previously take antibiotics but has an upcoming appointment with a dentist next week. Patient is rating her tooth pain 5 out of 10 without radiation, denies tingling numbness. Has not taken any medication for symptom relief. Patient is taking Norvasc 10 mg, Lasix 40, and potassium 20 mg daily. Patient stable with stable vital signs other than elevated blood pressure which is secondary to not taking her blood pressure medication for over 2 weeks. Patient reports that she has been having this headache for the past week. Patient has been seen at [facility] previously for similar symptoms and noncompliance with blood pressure medication. Ddx considered but are not limited to: Presents emergency, emergency, hypertension uncontrolled Vital signs: are WNL, pt. is afebrile H&PE are most consistent with: Tooth infection, htn ORDERS: Norvasc, Lasix, potassium, Keflex ER intervention: Norvasc, Lasix DISCHARGE: At this time pt. is stable for d/c to home. Will provide printed patient care instructions, and any necessary prescriptions. Care plan and follow up instructions have been discussed with the patient prior to discharge. follow up with Primary care provider and dentist if worsening symptoms return to the emergency room. At this time no head CT scan no acute disease as patient symptomatic and has been having pressure headache for the past week due to not taking blood pressure medication. Patient has previously been presented with similar symptoms Last Vital Signs Date Time Temp Pulse Resp B/P (MAP) Pulse Ox O2 Delivery O2 Flow Rate FiO2 06/11/19 17:30 164/99 06/11/19 17:00 84 06/11/19 16:56 18 Room Air 06/11/19 16:56 98.2 98 Disposition: HOME, SELF-CARE Condition: Stable Scripts Amlodipine Besylate (Norvasc) 10 Mg Tablet 10 MG ORAL DAILY for 30 Days, #30 TAB Prov: Sohail Curiel 06/11/19 Furosemide* (LASIX*) 40 Mg Tablet 40 MG ORAL DAILY, #30 TAB Prov: Sohail Curiel 06/11/19 Cephalexin* (CEPHALEXIN*) 500 Mg Tablet 500 MG ORAL EVERY 6 HOURS for 7 Days, #28 CAP Prov: Sohail Curiel 06/11/19 Potassium Chloride* (K-DUR*) 10 Meq Capsule.er 10 MEQ ORAL EVERY OTHER DAY, #14 TAB 0 Refills Prov: Sohail Curiel 06/11/19 Patient Instructions: Dental Abscess, Hypertension, [id number] Additional Instructions: Follow-up with your primary care provider and if worsening symptoms return to the emergency room Sohail Curiel Jun 11, 2019 17:36
[2019-06-11] MEDS ORDERED: NORVASC10 MG ORAL (17:42)
[2019-06-11] MEDS ORDERED: FUROSEMIDE40 MG ORAL (17:42)
[2019-06-11] MEDS ORDERED: CEPHALEXIN500 M1 ORAL (17:42)
[2019-06-11] MEDS ORDERED: POTASSIUM CHLO10 MEQ ORAL (17:42)
--- NOTE | 2019-06-11 17:55 | NUR ---
ED Nurse Note: informed of patients blood pressure of 170/82 to EMMY Sauceda states its okay for patients to be discharged.
[2019-06-11 18:00] VITALS: BP 180/92
== END 2019-06-11 18:10 | disposition home or self-care (01) ==
LOC: EMR 18:02
DX: I10 Essential (primary) hypertension (principal); K04.7 Periapical abscess without sinus; K21.9 Gastro-esophageal reflux disease without esophagitis; Z88.8 Allergy status to other drugs, medicaments and biological substances; Z88.0 Allergy status to penicillin
CPT/HCPCS: 99283

== ENCOUNTER 2020-01-11 19:55 | Emergency (ER) | payer MEDICAID ==
[~2020-01-11] VITALS: Ht 154.9 cm; Wt 99.8 kg
[~2020-01-11 19:55] MED LIST changes: +CEPHALEXIN500 M1 ORAL
[2020-01-11 20:04] VITALS: BP 210/94
[2020-01-11] MEDS ORDERED: Morphine Sulfate 4mg/ml Inj (IV USE ONLY) IVP ONE ×2 (20:15→22:45)
--- NOTE | 2020-01-11 20:48 | Diagnostic Imaging Report ---
EXAM: CT Head Without Intravenous Contrast CLINICAL HISTORY: H/A TECHNIQUE: Axial computed tomography images of the head/brain without intravenous contrast. CTDI is 53.4 mGy and DLP is 1066.8 mGy-cm. One or more of the following dose reduction techniques were used: automated exposure control, adjustment of the mA and/or kV according to patient size, use of iterative reconstruction technique. COMPARISON: No relevant prior studies available. FINDINGS: Brain: Tiny 6 mm hyperdense focus in the right subcortical white matter near the roof of the right occipital horn right lateral ventricle could represent mineralization or calcium deposition but small hyperdense mass or focus of hemorrhage is noted excluded. Ventricles: Unremarkable. No ventriculomegaly. Bones/joints: Unremarkable. No acute fracture. Soft tissues: Unremarkable. Sinuses: Unremarkable as visualized. No acute sinusitis. Mastoid air cells: Unremarkable as visualized. No mastoid effusion. IMPRESSION: Tiny 6 mm hyperdense focus in the right subcortical white matter near the roof of the right occipital horn right lateral ventricle could represent mineralization or calcium deposition but small hyperdense mass or focus of hemorrhage is noted excluded. Otherwise, noncontrast head CT is unremarkable. Consider correlation with MRI or close follow-up CT in further evaluation. <MYCVCSECTION> Communications: 01/11/20 20:50 Call Doctor Regarding Above results, called José ROQUE on 01/10 20:50 (-07:00)
[2020-01-11] MEDS ORDERED: levETIRAcetam 1,000mg/NS100ml 100 ML IVPB ONE (21:00)
[2020-01-11 21:11] LABS: BASOPHILS % (AUTO) 0.7 % (0.0-2.0); EOSINOPHILS % (AUTO) 0.4 % (0.0-3.0); HEMATOCRIT 49.4 % (37.0-47.0); HEMOGLOBIN 15.5 G/DL (12.0-16.0); LYMPHOCYTES % (AUTO) 19.6 % (20.0-45.0); MEAN CORPUSCULAR VOLUME 87 FL (80-99); MONOCYTES % (AUTO) 2.6 % (1.0-10.0); NEUTROPHILS % (AUTO) 76.7 % (45.0-75.0); PLATELET COUNT 242 K/UL (150-450); RED CELL DISTRIBUTION WIDTH 13.9 % (11.6-14.8); WHITE BLOOD COUNT 8.4 K/UL (4.8-10.8)
[2020-01-11] MEDS: niCARdipine HCl 200 ML IV SCH ×2 (21:24→22:42)
[2020-01-11 21:25] LABS: ANION GAP 10 mmol/L (5-15); BLOOD UREA NITROGEN 9 mg/dL (7-18); CALCIUM 9.7 MG/DL (8.5-10.1); CARBON DIOXIDE 30 MMOL/L (21-32); CHLORIDE 103 MMOL/L (98-107); CREATININE 0.9 MG/DL (0.55-1.30); POTASSIUM 3.5 MMOL/L (3.5-5.1); SODIUM 143 MMOL/L (136-145)
[2020-01-11 21:26] VITALS: BP 203/106
[2020-01-11 21:36] LABS: ALANINE AMINOTRANSFERASE 25 U/L (12-78); ALBUMIN 4.4 G/DL (3.4-5.0); ALBUMIN/GLOBULIN RATIO 1.1 (1.0-2.7); ALKALINE PHOSPHATASE 120 U/L (46-116); ASPARTATE AMINO TRANSFERASE 21 U/L (15-37); BILIRUBIN,TOTAL 0.9 MG/DL (0.2-1.0)
[2020-01-11 21:40] VITALS: BP 210/94
--- NOTE | 2020-01-11 21:52 | Emergency Room Report ---
History of Present Illness General Chief Complaint: Hypertension Source: Patient Present Illness HPI 54-year-old female presents to ED complaining of headache started today. 10 out of 10, throbbing, nonradiating. Notes one episode of vomiting today. Systolic in triage over 200. Notes history of hypertension. States that she is run out of her medication for 2 months. Denies chest pain or shortness of breath. Denies fevers or chills. Denies neck stiffness. No other aggravating relieving factors. Denies any other associated symptoms Allergies: Coded Allergies: KWAKU INHIBITORS (Verified Allergy, Severe, facial swelling, 10/30/18) BENAZEPRIL (Verified Allergy, Severe, Anaphylaxis, 01/10/13) PENICILLINS (Verified Allergy, Unknown, Shortness of Breath, 07/22/17) Uncoded Allergies: BENAZEPRIL (Allergy, Unknown, 03/27/14) COVID-19 Screening Contact w/high risk pt: No Recent Travel to affected area: No Experienced COVID-19 symptoms?: No COVID-19 Testing performed CHICKEN RAISER: No Patient History Past Medical History: HTN, GERD Past Surgical History: none Pertinent Family History: none Social History: Denies: smoking, alcohol use, drug use Last Menstrual Period: december 26 Now: No : 5 Para: 5 Immunizations: UTD Reviewed Nursing Documentation: PMH: Agreed; PSxH: Agreed Nursing Documentation-PMH Past Medical History: No History, Except For Hx Hypertension: Yes Hx Gastrointestinal Problems: Yes - GERD Review of Systems All Other Systems: negative except mentioned in HPI Physical Exam Vital Signs Date Time Temp Pulse Resp B/P (MAP) Pulse Ox O2 Delivery O2 Flow Rate FiO2 01/11/20 19:57 98.6 100 19 224/125 (158) 98 Room Air Sp02 EP Interpretation: reviewed, normal General Appearance: no apparent distress, alert, GCS 15, non-toxic, obese Head: normocephalic, atraumatic Eyes: bilateral eye normal inspection, bilateral eye PERRL ENT: hearing grossly normal, normal pharynx, no angioedema, normal voice Neck: full range of motion, supple, no meningismus, supple/symm/no masses Respiratory: chest non-tender, lungs clear, normal breath sounds, speaking full sentences Cardiovascular #1: regular rate, rhythm, no edema Cardiovascular #2: 2+ carotid (R), 2+ carotid (L), 2+ radial (R), 2+ radial (L) , 2+ dorsalis pedis (R), 2+ dorsalis pedis (L) Gastrointestinal: normal bowel sounds, non tender, soft, non-distended, no guarding, no rebound Rectal: deferred Genitourinary: normal inspection, no CVA tenderness Musculoskeletal: back normal, normal range of motion, gait/station normal, non- tender Neurologic: alert, motor strength/tone normal, oriented x3, sensory intact, responsive, speech normal Psychiatric: judgement/insight normal, memory normal, mood/affect normal, no suicidal/homicidal ideation Reflexes: 3+ bicep (R), 3+ bicep (L), 3+ tricep (R), 3+ tricep (L), 3+ knee (R) , 3+ knee (L) Skin: no rash Lymphatic: no adenopathy Procedures Critical Care Time Critical Care Time i. I feel this is a highly complex case requiring extensive working including EKG/Rhythm strip, Xray/CT/US, Blood/urine lab work, repeat exams while in ED, and administration of strong opiates/narcotics for pain control, admission to hospital or close patient follow up. Total time: 60 min bedside evaluation and treatment excludes procedures (EKG). Reason for critical care: hypertensive emergency, intracranial bleed Possible complications: hypotension, hypertension, TN, shock, arrhythmias, metabolic acidosis, end organ damage, respiratory failure. Interventions: Labs, EKG, chest x-ray, CT head, pain meds, hydralazine, Keppra, discussion with neuro chief recordist. Nicardipine drip. Course: Presenting with headache, vomiting. Systolic greater than 200. CT shows hyperdense focus concerning for bleed. No midline shift or mass-effect. Systolic greater than 200. Given Keppra. Given hydralazine. Discussed with neuro chief recordist at [facility]. Started on nicardipine drip. Consultations: nursing staff, EMS, family Performed by: Dr Kumar Tolerated well condition = critical j. because of unstable vital signs this patient had a condition that could potentially threaten life or limb. I feel this is a critical patient who required my full attention while patient was considered critical. Total Critical Care Time excluding procedures was greater than 60 minutes Medical Decision Making Diagnostic Impression: Primary Impression: Hypertensive emergency Additional Impression: Intracranial bleed ER Course Hospital Course 54-year-old female presents with headache, vomiting. Blood pressure high Differential diagnosis includes- breakthrough seizure, alcohol abuse, noncompliance with medication Clinical course Patient placed on stretcher. Initial history and physical I ordered labs, IV fluids, EKG, CXR, CT brain Labs- electrolytes ok, no leukocytosis, hemoglobin/hematocrit stable, coags ok , trop negative EKG - NSR, no acute ischemic changes interpreted by me CXR no acute process CT Brain hyperdense focus concerning for bleed. no mass effect or midlien shift Given loading dose of Keppra. Given hydralazine without BP improvement discussed case with neuro chief recordist at [facility] and they accepted patient Patient is protecting airway and therefore should not be intubated. Patient started on nicardipine drip i. I feel this is a highly complex case requiring extensive working including EKG/Rhythm strip, Xray/CT/US, Blood/urine lab work, repeat exams while in ED, and administration of strong opiates/narcotics for pain control, admission to hospital or close patient follow up. Diagnosis - hypertensive emergency, intracranial bleed transferred in critical condition Labs Test 01/11/20 20:22 White Blood Count 8.4 K/UL (4.8-10.8) Red Blood Count 5.70 M/UL (4.20-5.40) Hemoglobin 15.5 G/DL (12.0-16.0) Hematocrit 49.4 % (37.0-47.0) Mean Corpuscular Volume 87 FL (80-99) Mean Corpuscular Hemoglobin 27.2 PG (27.0-31.0) Mean Corpuscular Hemoglobin Concent 31.4 G/DL (32.0-36.0) Red Cell Distribution Width 13.9 % (11.6-14.8) Platelet Count 242 K/UL (150-450) Mean Platelet Volume 8.2 FL (6.5-10.1) Neutrophils (%) (Auto) 76.7 % (45.0-75.0) Lymphocytes (%) (Auto) 19.6 % (20.0-45.0) Monocytes (%) (Auto) 2.6 % (1.0-10.0) Eosinophils (%) (Auto) 0.4 % (0.0-3.0) Basophils (%) (Auto) 0.7 % (0.0-2.0) Prothrombin Time 11.2 SEC (9.30-11.50) Prothromb Time International Ratio 1.0 (0.9-1.1) Activated Partial Thromboplast Time 28 SEC (23-33) Sodium Level 143 MMOL/L (136-145) Potassium Level 3.5 MMOL/L (3.5-5.1) Chloride Level 103 MMOL/L (98-107) Carbon Dioxide Level 30 MMOL/L (21-32) Anion Gap 10 mmol/L (5-15) Blood Urea Nitrogen 9 mg/dL (7-18) Creatinine 0.9 MG/DL (0.55-1.30) Estimat Glomerular Filtration Rate > 60 mL/min (>60) Glucose Level 120 MG/DL (74-106) Calcium Level 9.7 MG/DL (8.5-10.1) Total Bilirubin 0.9 MG/DL (0.2-1.0) Aspartate Amino Transf (AST/SGOT) 21 U/L (15-37) Alanine Aminotransferase (ALT/SGPT) 25 U/L (12-78) Alkaline Phosphatase 120 U/L (46-116) Troponin I 0.000 ng/mL (0.000-0.056) Pro-B-Type Natriuretic Peptide 243 pg/mL (0-125) Total Protein 8.3 G/DL (6.4-8.2) Albumin 4.4 G/DL (3.4-5.0) Globulin 3.9 g/dL Albumin/Globulin Ratio 1.1 (1.0-2.7) EKG Diagnostic Results Rate: normal Rhythm: NSR ST Segments: no acute changes ASA given to the pt in ED: No Rhythm Strip Diag. Results EP Interpretation: yes Rhythm: NSR, no PVC's, no ectopy Chest X-Ray Diagnostic Results Chest X-Ray Diagnostic Results : Chest X-Ray Ordered: Yes # of Views/Limited/Complete: 1 View Indication: Other EP Interpretation: Yes Interpretation: no consolidation, no effusion, no pneumothorax, no acute cardiopulmonary disease Impression: No acute disease Electronically Signed by: Electronically signed by Jovon Kumar MD CT/MRI/US Diagnostic Results CT/MRI/US Diagnostic Results : Imaging Test Ordered: CT Head Impression COMPARISON: No relevant prior studies available. FINDINGS: Brain: Tiny 6 mm hyperdense focus in the right subcortical white matter near the roof of the right occipital horn right lateral ventricle could represent mineralization or calcium deposition but small hyperdense mass or focus of hemorrhage is noted excluded. Ventricles: Unremarkable. No ventriculomegaly. Bones/joints: Unremarkable. No acute fracture. Soft tissues: Unremarkable. Sinuses: Unremarkable as visualized. No acute sinusitis. Mastoid air cells: Unremarkable as visualized. No mastoid effusion. IMPRESSION: Tiny 6 mm hyperdense focus in the right subcortical white matter near the roof of the right occipital horn right lateral ventricle could represent mineralization or calcium deposition but small hyperdense mass or focus of hemorrhage is noted excluded. Otherwise, noncontrast head CT is unremarkable. Consider correlation with MRI or close follow-up CT in further evaluation. Last Vital Signs Date Time Temp Pulse Resp B/P (MAP) Pulse Ox O2 Delivery O2 Flow Rate FiO2 01/11/20 21:24 214/107 01/11/20 20:04 87 19 Room Air 01/11/20 20:04 98.6 100 Status: improved Disposition: SHORT-TERM HOSP Condition: Critical Referrals: [facility] (PCP) Jovon Kumar MD January 11, 2020 21:52
[2020-01-11 21:55] VITALS: BP 185/100
[2020-01-11 22:50] VITALS: BP 193/87
--- NOTE | 2020-01-12 09:05 | Diagnostic Imaging Report ---
Procedure: XRAY Chest 1v Reason for study: Chest pain Comparison films: None. FINDINGS: A single one view chest is obtained. Vascularity is normal. Mild atelectasis left lung base. Cardiac and mediastinal silhouette are within normal limits. CP angles are sharp. The bony thorax appear unremarkable. IMPRESSION: Mild left basilar atelectasis.
== END 2020-01-11 22:50 | disposition short-term general hospital (02) ==
LOC: EMR 20:14
DX: I16.1 Hypertensive emergency (principal); I10 Essential (primary) hypertension; I61.9 Nontraumatic intracerebral hemorrhage, unspecified; E66.9 Obesity, unspecified; K21.9 Gastro-esophageal reflux disease without esophagitis; R11.10 Vomiting, unspecified; Z88.0 Allergy status to penicillin; Z88.8 Allergy status to other drugs, medicaments and biological substances
CPT/HCPCS: 36415; 70450; 71045; 80053; 83880; 84484; 85025; 85610; 85730; 86850; 86900; 86901; 93005; 96365; 96366; 96375; 96376; J0360; J1953; J2270; J2405; Z7502; 99291

== ENCOUNTER 2020-02-28 23:28 | Emergency (ER) | payer MEDICAID ==
[~2020-02-28] VITALS: Ht 154.9 cm; Wt 98.0 kg
[2020-02-28 23:50] VITALS: BP 157/80
--- NOTE | 2020-02-28 23:50 | NUR ---
ED Nurse Note: Pt walked into ED for medication refill. Pt states she has not been able to see her PCP due to insurance purposes and has ran out of all her medication. Pt needs a refill on hydralazine 50mg, furosemide 40mg, potassium 20meq, amlodipine 10mg, vitamin b-2 100mg, gabapentin 300mg, labetalol 100mg. Pt is aaox4, breathing is normal and unlabored. Pt is in no acute distress and is ambulatory with steady gait. Pt has no pain or any complaints.
--- NOTE | 2020-02-28 23:55 | NUR ---
ED Nurse Note: Pt does actually report 9/10 head pain. She has been without her medications for two days.
[2020-02-29] MEDS ORDERED: AMLODIPINE BESY10 MG ORAL (00:13)
[2020-02-29] MEDS ORDERED: GABAPENTIN400 MG ORAL (00:13)
[2020-02-29] MEDS ORDERED: NORMODYNE100 MG ORAL (00:13)
[2020-02-29] MEDS ORDERED: FUROSEMIDE40 MG ORAL (00:13)
[2020-02-29] MEDS ORDERED: HYDRALAZINE HCL50 MG ORAL (00:13)
[2020-02-29] MEDS ORDERED: POTASSIUM CHLO20 ME1 ORAL (00:13)
[2020-02-29 00:20] VITALS: BP 149/82
--- NOTE | 2020-02-29 00:20 | NUR ---
ER DISCHARGE NOTE: Patient is cleared to be discharged per ERMD, pt is aox4, on room air, with stable vital signs. pt was given dc and prescription instructions, pt was able to verbalize understanding, pt id band removed. pt is able to ambulate with steady gait. pt took all belongings.
--- NOTE | 2020-03-01 10:11 | Emergency Room Report ---
History of Present Illness General Chief Complaint: Medication Refill Present Illness HPI Patient is a 54-year-old female presents for medication refill. She reports having more run out of multiple medications. She been unable to see her primary care physician. She denies any current symptoms. States she takes multiple medications for blood pressure as well as diuretics. Denies any shortness of breath. Allergies: Coded Allergies: KWAKU INHIBITORS (Verified Allergy, Severe, facial swelling, 10/30/18) BENAZEPRIL (Verified Allergy, Severe, Anaphylaxis, 01/10/13) PENICILLINS (Verified Allergy, Unknown, Shortness of Breath, 07/22/17) Uncoded Allergies: BENAZEPRIL (Allergy, Unknown, 03/27/14) COVID-19 Screening Contact w/high risk pt: No Recent Travel to affected area: No Experienced COVID-19 symptoms?: No COVID-19 Testing performed COYOTE HUNTER: No Patient History Past Medical History: see triage record Last Menstrual Period: 01/31 Reviewed Nursing Documentation: PMH: Agreed; PSxH: Agreed Nursing Documentation-PMH Hx Hypertension: Yes Hx Gastrointestinal Problems: Yes - GERD Review of Systems All Other Systems: negative except mentioned in HPI Physical Exam Vital Signs Date Time Temp Pulse Resp B/P (MAP) Pulse Ox O2 Delivery O2 Flow Rate FiO2 02/28/20 23:36 98.8 92 19 157/80 (105) 97 Room Air General Appearance: well appearing, no apparent distress, alert, GCS 15 Head: normocephalic, atraumatic ENT: hearing grossly normal, normal voice Neck: full range of motion, supple Respiratory: no respiratory distress, speaking full sentences Cardiovascular #1: no edema Musculoskeletal: no calf tenderness Neurologic: normal gait Psychiatric: mood/affect normal Skin: no rash Medical Decision Making Diagnostic Impression: Primary Impression: Medication refill ER Course Patient presented for medication refill. Patient does not appear to any be in any distress and does not appear to have any evidence of acute heart failure. Patient's medications were refilled as requested. She was advised to follow-up with her primary care physician for recheck. She is advised to return if she has any new concerns. The patient is advised to follow up with primary care doctor in 1-2 days. Patient is advised to return if any worsening condition or if any changes in status that are concerning. This report is dictated with [employer] chinese herbalist software which may occasionally lead to discrepancies related to use of this software. Last Vital Signs Date Time Temp Pulse Resp B/P (MAP) Pulse Ox O2 Delivery O2 Flow Rate FiO2 02/29/20 00:20 98.8 86 19 149/82 98 Room Air Status: improved Disposition: HOME, SELF-CARE Condition: Stable Scripts Labetalol HCl (Labetalol HCl) 100 Mg Tablet 100 MG ORAL EVERY 12 HOURS, #60 TAB Prov: Sunil Frazier MD 02/29/20 Hydralazine Hcl* (HYDRALAZINE HCL*) 50 Mg Tablet 50 MG ORAL EVERY 8 HOURS, #90 TAB Prov: Sunil Frazier MD 02/29/20 Gabapentin* (GABAPENTIN*) 400 Mg Capsule 400 MG ORAL THREE TIMES A DAY, #30 CAP 0 Refills Prov: Sunil Frazier MD 02/29/20 Furosemide* (LASIX*) 40 Mg Tablet 40 MG ORAL TWICE A DAY, #60 TAB Prov: Sunil Frazier MD 02/29/20 Potassium Chloride* (K-DUR*) 20 Meq Tab.er.prt 20 MEQ ORAL DAILY, #30 TAB 0 Refills Prov: Sunil Frazier MD 02/29/20 Amlodipine Besylate* (AMLODIPINE BESYLATE*) 10 Mg Tablet 10 MG ORAL DAILY, #30 TAB Prov: Sunil Frazier MD 02/29/20 Patient Instructions: Medicine Refill at the Emergency Department Sunil Frazier MD Mar 01, 2020 10:11
== END 2020-02-29 00:20 | disposition home or self-care (01) ==
LOC: EMR 23:57
DX: Z76.0 Encounter for issue of repeat prescription (principal); I10 Essential (primary) hypertension; K21.9 Gastro-esophageal reflux disease without esophagitis; Z88.0 Allergy status to penicillin; Z88.8 Allergy status to other drugs, medicaments and biological substances
CPT/HCPCS: 99282

== ENCOUNTER → 2020-09-17 | Emergency (ER) | payer MEDICAID ==
[~2020-09-17] VITALS: Ht 154.9 cm; Wt 99.8 kg
[~2020-09-17] MED LIST changes: +Azithromycin 250mg tab ORAL ONE; +BENADRYL ALLERG25 M1 PO; +GABAPENTIN400 MG ORAL; +HYDRALAZINE HCL50 MG ORAL; +NORMODYNE100 MG ORAL
--- NOTE | 2020-09-17 22:40 | NUR ---
ED Nurse Note: Pt came to ED from home with complaint of left ear pain of 3/10 and gemeralized pain body pain. Pt is A/O x 4 and verbally responsive. No SOB or caute distress noted. Vitals stable. Bp high but pt took BP medications before she left.
[2020-09-17 22:47] VITALS: BP 185/90
--- NOTE | 2020-09-17 22:56 | Emergency Room Report ---
History of Present Illness General Chief Complaint: Earache Source: Patient Present Illness HPI Disclaimer: Please note that this report is being documented using DRAGON technology. This can lead to erroneous entry secondary to incorrect interpretation by the dictating instrument. HPI: 54-year female presents for evaluation of earache and body chills. Symptoms present over a week. She reports intermittent pain and crackling sensation in the left ear. Sometimes worse with chewing. Denies fevers but reports body chills. Has been using DayQuil intermittently with some improvement in symptoms. Denies nausea, vomiting, diarrhea, fever, cough, congestion, shortness of breath. Mild sore throat but improved with medication. Recent travel reported by house members but tested negative for COVID-19 upon return. Patient arrives hypertensive and states she did not take her medications this morning but did take them just prior to arrival. He did she denies chest pain, shortness of breath, headache or other symptoms at this time. 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 EOMI. PERRLA. Poor dentition. Cracked left lower lobe lobar but without surrounding gingival edema or erythema. No lymphadenopathy. No mastoid tenderness. Left tympanic membrane is slightly bulging, erythematous and has a small fluid collection behind it. The right tympanic membrane is pearly hurd, nonbulging with clear landmarks and no obvious effusion. Resp: Normal work of breathing Skin: Intact. No abrasions, laceration or rash over the exposed skin MSK: Normal tone and bulk. Moving all extremities. No obvious deformity. Neuro: Awake and alert. Mentating appropriately Medical Decision Making Diagnostic Impression: Primary Impression: Otitis media Additional Impression: Hypertension ER Course Is a 54-year-old female presenting for evaluation of earache and body chills. Consistent with left-sided otitis media. Will start on azithromycin as patient has allergy to penicillin family of antibiotics. Otherwise well-appearing. I also recommended COVID-19 testing giving family members recent travel however she stated that they tested negative for COVID-19 upon return. Unfortunately, w e are unable to perform COVID-19 testing at our facility for outpatients at this time. Instructed to maintain quarantine precautions until testing and while symptomatic. Instructed to return new or worsening symptoms. She understands and agrees with the treatment plan. Last Vital Signs Date Time Temp Pulse Resp B/P (MAP) Pulse Ox O2 Delivery O2 Flow Rate FiO2 09/17/20 22:47 97.6 92 18 185/90 Room Air 09/17/20 22:25 98 Disposition: HOME, SELF-CARE Condition: Stable Scripts Azithromycin* (ZITHROMAX*) 250 Mg Tablet 250 MG ORAL DAILY, #5 TAB Prov: Raymond Eng MD 09/17/20 Patient Instructions: Otitis Media, Adult Additional Instructions: Call your primary physician as soon as possible to discuss emergency department visit. You may require reevaluation or further testing per your doctor's recommendations. Limit your contact with others as much as possible over the next 14 days. Stay minimum of 6 feet away from others, do not attend large gatherings and clean and disinfect all heavily used surfaces. Follow CDC guidelines for isolation and infection prevention. If you experience any new or worsening symptoms discussed with your doctor or return to the emergency department for reevaluation. Raymond Eng MD Sep 17, 2020 22:56
--- NOTE | 2020-09-17 23:02 | NUR ---
Note undone in EDM - 09/17/20 at 2305 by AURELIANO ED Nurse Note: Pt came to ED from home with complaint of left ear pain of 3/10 and gemeralized pain body pain. Pt is A/O x 4 and verbally responsive. No SOB or caute distress noted. Vitals stable. Bp high but pt took BP medications before she left.
[2020-09-17 23:06] VITALS: BP 182/89
== END | disposition home or self-care (01) ==
LOC: EMR 22:35
DX: H66.92 Otitis media, unspecified, left ear (principal); I10 Essential (primary) hypertension; Z88.0 Allergy status to penicillin; Z88.8 Allergy status to other drugs, medicaments and biological substances
CPT/HCPCS: Q0144; Z7502; 99282

== ENCOUNTER → 2020-09-18 | Emergency (ER) | payer MEDICAID ==
[~2020-09-18] VITALS: Ht 154.9 cm; Wt 99.8 kg
[~2020-09-18] MED LIST changes: -Azithromycin 250mg tab ORAL ONE
--- NOTE | 2020-09-18 05:07 | NUR ---
ED Nurse Note: Pt came back to ED from home. Pt states she feels her nose and mouth are swelling. No swelling seen in nose or mouth. She states she can hardly breath. No SOB or caute distress heard. Vitals stable.
--- NOTE | 2020-09-18 05:15 | Emergency Room Report ---
History of Present Illness General Chief Complaint: Allergic Reaction Source: Patient Present Illness HPI Disclaimer: Please note that this report is being documented using [employer] technology. This can lead to erroneous entry secondary to incorrect interpretation by the dictating instrument. HPI: 54-year-old female presents reporting an allergic reaction to azithromycin. Seen by me earlier today diagnosed with otitis media. Because of multiple allergies had prescribed azithromycin. Patient states she had tingling of the nose and lips as well as nasal congestion. Denied wheezing, shortness of breath, swelling of the tongue or face. The symptoms were transient and occurred after taking azithromycin reportedly. Symptoms are now resolved. She is requesting a change of her antibiotics. 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 EOMI. Amblyopia right eye. Uvula midline. No pharyngeal or tongue edema. No facial edema or asymmetry. No significant irritation or edema in the nasal turbines. Speaking full sentences. Tolerating secretions. No damian bmandibular lymphadenopathy. Multiple dental caries very poor dentition. No obvious abscess. No pain on palpation. Again a small effusion behind left tympanic membrane with erythema noted. No tenderness over the mastoids. Cardiovascular: RRR. S1 and S2 normal. No murmur appreciated Resp: Normal work of breathing. No cough, wheezing or crackles appreciated Skin: Intact. No abrasions, laceration or rash over the exposed skin MSK: Normal tone and bulk. Moving all extremities. No obvious deformity. Neuro: Awake and alert. Mentating appropriately. Medical Decision Making Diagnostic Impression: Primary Impression: Medication reaction ER Course 54-year-old female recently started on azithromycin for otitis media presents requesting medication change after reported reaction. Symptoms are now resolved aside from nasal congestion. No evidence of anaphylaxis or allergic reaction at this time. She is protecting her airway. Speaking full sentences, tolerating secretions, no oral or facial edema. Patient is requesting a change in medication. She reports multiple allergies to antibiotics aside from cephalosporins. Will start Keflex which she states she has tolerated. Azithromycin discontinued. Instructed again to follow-up with PMD and again discussed that her symptoms may be viral and that she should obtain outpatient COVID-19 testing given her son's recent travel and his recent symptoms. Also recommended that she follow-up with an cuprous chloride operator through her PMD as she reports allergy to multiple antibiotic classes. Patient given Benadryl. Instructed to return with new or worsening symptoms. Last Vital Signs Date Time Temp Pulse Resp B/P (MAP) Pulse Ox O2 Delivery O2 Flow Rate FiO2 09/18/20 05:02 98.8 86 18 136/74 (94) 97 Room Air Disposition: HOME, SELF-CARE Condition: Stable Scripts Diphenhydramine Hcl (BENADRYL ALLERGY) 25 Mg Tablet 25 MG PO Q6HR, #30 TAB Prov: Raymond Eng MD 09/18/20 Cephalexin* (KEFLEX*) 500 Mg Tablet 500 MG ORAL EVERY 6 HOURS for 7 Days, #28 CAP Prov: Raymond Eng MD 09/18/20 Patient Instructions: Allergies Additional Instructions: Please follow-up with your primary care doctor in the next 1 to 3 days to discuss this emergency department visit and for reevaluation. If you have any new or worsening symptoms please return to the emergency department for reevaluation. Please note that this report is being documented using [employer] technology. This can lead to erroneous entry secondary to incorrect interpretation by the dictating instrument. Raymond Eng MD Sep 18, 2020 05:15
[2020-09-18 05:29] VITALS: BP 156/80
[2020-09-18 05:34] VITALS: BP 159/80
== END | disposition home or self-care (01) ==
LOC: EMR 05:04
DX: T78.40XA Allergy, unspecified, initial encounter (principal); T36.3X5A Adverse effect of macrolides, initial encounter; Y92.9 Unspecified place or not applicable; I10 Essential (primary) hypertension; Z88.0 Allergy status to penicillin; Z88.8 Allergy status to other drugs, medicaments and biological substances
CPT/HCPCS: 99282